=== PATIENT | female | born 1950 | race African-American/Black ===

== ENCOUNTER → 2018-12-22 | Outpatient (CLI) | payer BC ==
[~2018-12-22] MED LIST: ASPI-612 PO; CALC1TAB75 PO; CALC600T4 PO; CLON0.1T PO; CLON0.2T PO; CYAN1TAB28 PO; FERR325T3 PO; GLIM2TAB2 PO; GLIM4TAB2 PO; LOSA100T14 PO; NIFE30TA17 PO; POLY17PO29 PO; POTA20TA82 PO; SITA100T PO; SITA50TA PO
--- NOTE | 2018-12-22 11:34 | KCIC ---
RENAL COMPLETE BILATERAL History: Stage IV kidney disease Comparison: None. Findings: Multiple sonographic images of the kidneys and retroperitoneal structures are submitted. Right kidney measured 11.7 x 5.2 x 5.2 cm. Left kidney measured 12.2 x 4.7 x 3.8 cm. There is no hydronephrosis of either kidney. Renal parenchyma bilaterally is echogenic. There is a focus of hypoechogenicity with internal echoes of the mid left kidney about 2.7 x 2.2 x 2.3 cm, no associated vascularity on color Doppler imaging and slight increased through transmission. Inferior vena cava is obscured by bowel gas. Proximal abdominal aorta is obscured by bowel gas otherwise normal caliber of the visualized sacral aorta up to 1.6 cm the mid segment. Ureteral jets are seen in the urinary bladder lumen bilaterally. Impression: 1. There is slightly complex cyst of the mid left kidney. There is no hydronephrosis of either kidney. Both kidneys are echogenic, evidence of medical renal disease. Electronically signed by: Kumar Moffett MD (12/22/2018 11:31 AM) [facility]
== END | disposition home or self-care (01) ==
LOC: KCIC US 10:57
PROVIDERS: ATTEND Internal Medicine Nephrology
DX: N18.4 Chronic kidney disease, stage 4 (severe) (principal); N28.9 Disorder of kidney and ureter, unspecified
CPT/HCPCS: 76770

== ENCOUNTER 2019-01-21 08:27 | Outpatient (CLI) | payer BC ==
[2019-01-21] VITALS (21 sets, daily range): BP systolic 147–190; BP diastolic 68–86
[~2019-01-21] VITALS: Ht 170.2 cm; Wt 75.7 kg
[2019-01-21] MEDS ORDERED: GLIM2TAB2 PO (08:49)
[2019-01-21] MEDS ORDERED: POTA20TA82 PO (08:49)
[2019-01-21] MEDS ORDERED: ASPI-612 PO (08:49)
[2019-01-21] MEDS ORDERED: SITA100T PO (08:49)
[2019-01-21] MEDS ORDERED: LOSA100T14 PO (08:49)
[2019-01-21] MEDS ORDERED: CALC600T4 PO (08:49)
[2019-01-21] MEDS ORDERED: NIFE30TA17 PO (08:49)
[2019-01-21] MEDS ORDERED: CLON0.1T PO (08:49)
[2019-01-21 09:20] LABS: BASO % 1 % (0-3); EOS # 0.1 x10^3/uL (0.0-0.7); EOS % 2 % (0-3); HEMOGLOBIN 8.8 g/dL (12.0-15.5); LYMPH % 17 % (24-48); MEAN CORPUSCULAR HEMOGLOBIN 29 pg (25-35); MEAN CORPUSCULAR HGB CONC 32 g/dL (31-37); MEAN CORPUSCULAR VOLUME 90 fL (79-100); MONO # 0.6 x10^3/uL (0.0-1.1); MONO % 9 % (0-9); NEUT # 4.3 x10^3uL (1.8-7.7); NEUT % 72 % (31-73); PLATELET COUNT 219 x10^3/uL (140-400); RED BLOOD COUNT 3.01 x10^6/uL (3.50-5.40); RED CELL DISTRIBUTION WIDTH 13.4 % (11.5-14.5)
[2019-01-21 09:24] LABS: CALCIUM 9.1 mg/dL (8.5-10.1); CREATININE 3.9 mg/dL (0.6-1.0); GFR 13.8; POTASSIUM 4.3 mmol/L (3.5-5.1)
[2019-01-21 09:29] LABS: PROTHROMBIN TIME PATIENT 13.8 SEC (11.7-14.0)
[2019-01-21] MEDS ORDERED: fentaNYL PF VIAL 100 MCG/2 ML VIAL ONE (09:34)
[2019-01-21] MEDS ORDERED: MIDAZOLAM HCL/PF 2 MG/2 ML VIAL. ONE (09:34)
[2019-01-21] MEDS ORDERED: LIDOCAINE WITH 8.4% SOD BICARB 3 ML DISP.SYRIN. ONE (09:59)
[2019-01-21] MEDS ORDERED: GELATIN SPONGE SIZE 12-7MM SPONGE. ONE (09:59)
[2019-01-21] MEDS ORDERED: fentaNYL PF VIAL 100 MCG/2 ML VIAL IV ONE (10:30)
[2019-01-21] MEDS ORDERED: GELATIN SPONGE SIZE 12-7MM SPONGE. TP ONE (10:30)
[2019-01-21] MEDS ORDERED: LIDOCAINE WITH 8.4% SOD BICARB 3 ML DISP.SYRIN. IJ ONE (10:30)
[2019-01-21] MEDS ORDERED: MIDAZOLAM HCL/PF 2 MG/2 ML VIAL. IV ONE (10:30)
--- NOTE | 2019-01-21 11:24 | RAD ---
CT-guided bone marrow biopsy. 01/21/2019 11:21 AM Indication: Elevated free light chains Discussion: The risks and benefits of the procedure, including but not limited to, bleeding and infection were discussed patient. Informed consent was obtained. The patient was brought to the CT scanner and placed in the prone position. A timeout procedure was performed. [employer] CT imaging of the pelvis demonstrated left ilium amenable to bone marrow biopsy. The overlying soft tissues were prepped and draped using maximum sterile barrier technique. 1% lidocaine without epinephrine was administered for local anesthesia. Under intermittent CT guidance, an OncControl needle was advanced into the bone marrow of the left iliac crest. 2 Aspirates and 1 core biopsy samples were obtained. Samples were delivered to pathology was present at the time of procedure. The needle was removed and manual pressure held to achieve hemostasis. No immediate complications were identified. The procedure was performed under conscious sedation including continuous cardiopulmonary monitoring via dedicated sedation nurse. Sedation time: 20 minutes Impression: Successful CT-guided bone marrow biopsy of the left iliac crest . PQRS Compliance Statement: One or more of the following individualized dose reduction techniques were utilized for this examination: 1. Automated exposure control 2. Adjustment of the mA and/or kV according to patient size 3. Use of iterative reconstruction technique
--- NOTE | 2019-01-21 14:13 | NUR ---
Discharge Note: KAREN ALVAREZ Discharge instructions and discharge home medications reviewed with Patient and a copy given. All questions have been answered and understanding verbalized. The following instructions and handouts were given: moderate sedation and renal biopsy after care Discontinued lines and drains: Peripheral IV intact. Patient discharged to Home or Self Care withFamily Membervia Wheelchair
--- NOTE | 2019-02-03 17:07 | PATHOLOGY ---
[facility] Accession Number: [id number] . 01 Material submitted: . PART A: BONE MARROW BIOPSY PART B: BONE MARROW CLOT PART C: BONE MARROW ASPIRATE SLIDES PART D: PERIPHERAL BLOOD SMEAR PART E: BONE MARROW FLOW . 01 Pre-operative diagnosis: . Stage IV chronic kidney disease, type 2 diabetes, hypertension, anemia, and elevated free light chains. . 01 Clinical history: . Elevated free light chain . 02 Diagnosis: Peripheral smear: - Normocytic normochromic anemia, moderate. . Bone marrow, aspirate smears, clot sections, and core biopsy: - Normocellular marrow showing trilineage hematopoiesis, no significant dyspoiesis, adequate to mildly increased reticuloendothelial iron stores, and focal mild polyclonal plasmacytosis. . (ARNULFOM:miguel; 02/01/2019) AZJ/02/03/2019 . 02 Comment: The peripheral smear shows a moderate normocytic normochromic anemia. There is no evidence of a red cell fragmentation disorder. The bone marrow is normocellular and shows trilineage hematopoiesis, no significant dyspoiesis, and adequate to mildly increased reticuloendothelial iron stores. There are foci of mild plasmacytosis showing between 5% and 10% plasma cells. Most areas show less than 5% plasma cells. The plasma cells are polyclonal. There is no evidence of involvement by multiple myeloma. The anemia in this case is most likely a result of anemia of chronic kidney disease. Correlate clinically. (COLIN:miguel; 02/01/2019) . 02 Electronically signed: . Nir Del Valle MD, Pathologist NPI- [id number] . 01 Gross description: . A. The specimen is received in formalin, labeled "Quincy Denis BM BX". Received are two needle cores of light jarrett bone measuring 0.5 and 0.6 cm in length, with each measuring 0.3 cm in diameter. The specimen is submitted entirely in cassette A1, following light decalcification. . B. The specimen is received in formalin, labeled "Quincy Denis, BM aspirate clot". Received is a moderate amount of blood coagulum measuring 3.0 x 3.0 x 0.7 cm in aggregate dimensions. The specimen is filtered and entirely submitted in cassettes B1 and B2. (CAA; 01/21/2019) QAC/QAC . 02 Microscopic: . Laboratory Data: The WBC count is 6.0 K/CMM, and the automated WBC differential reveals 72% neutrophils, 17% lymphs, 9% monos, 2% eos, and 1% baso. The RBC count is 3.01 M/CMM, hemoglobin 8.8 G/DL, hematocrit 27.0%, MCV 90 FL, MCH 29 PG, MCHC 32 G/DL, and the RDW is 13.4%. The platelet count is 219 K/CMM. The BUN is 52 MG/DL, and creatinine is 3.9 MG/DL. Additional laboratory results are obtained from Dr. Chan's office. The total protein is 7.5 G/DL, albumin 3.8 G/DL, and the globulin is 3.7 G/DL. The serum protein electrophoresis is normal and does not show an abnormal protein band. Serum immunofixation shows no evidence of a paraprotein. The serum IgG is 1,345 MG/DL, IgA 272 MG/DL, and IgM 39 MG/DL. The serum iron is 37 UG/DL, TIBC 326 UG/DL, saturation 11%, and ferritin 86 NG/ML. The serum kappa free light chain is 15.36 MG/DL, lambda free light chain 4.47 MG/DL, and the kappa/lambda free light chain ratio is 3.44. The serum folate is 12.2 NG/ML, and vitamin B12 is 354 PG/ML. . Peripheral Smear: The WBC count is normal. The WBC differential reveals a predominance of segmented neutrophils, with smaller populations of lymphocytes and monocytes and an occasional eosinophil noted. Neutrophils do not show dysplastic changes. There is no significant neutrophilic left shift. There are no circulating blasts. There is no leukoerythroblastic reaction. The lymphocyte population consists predominantly of small lymphocytes. An occasional reactive lymphocyte is noted. Red blood cells appear normochromic and normocytic and show no significant anisopoikilocytosis. There is no evidence of red blood cell rouleaux. Platelets appear normal in number and morphology. . Aspirate Smears: Two Yanez's-stained and one iron-stained aspirate smears are examined. The smears contain multiple marrow particles. The M/E ratio varies depending upon the area examined, but overall appears within normal range. Erythroid maturation appears normoblastic. There are no megaloblastic or overt dysplastic changes. Granulopoiesis qualitatively appears normal. There is no significant left shift or dysplastic changes. There is no increase of blasts. Megakaryocytes appear adequate in number and are focally loosely clustered. The megakaryocytes are of variable ploidy. There are scattered admixed plasma cells. Plasma cells focally comprise up to approximately 5% of nucleated marrow cells. Most areas show less than 5% plasma cells. The plasma cells have a relatively mature appearance. There is no increase of lymphocytes. There are no cells foreign to the marrow. The iron stain of the aspirate smear shows adequate to focally mildly increased iron stores. No ringed sideroblasts are identified. . Bone Marrow Biopsy and Clot Section: Sections of the bone marrow biopsy reveal segments of bone marrow showing focal aspiration artifact. Preserved areas are on the order of 20%-30% cellular. The clot sections contain multiple marrow particles. Most of these particles range between 20% and 40% cellular. There is a good admixture of erythroid and granulocytic precursors, which are present in varying stages of maturation. There is no increase of blasts. Megakaryocytes appear adequate in number and are of variable ploidy. There are scattered admixed plasma cells with no solid clusters or areas of sheet-like replacement by plasma cells. There are no abnormal lymphoid aggregates, granulomas, or cells foreign to the marrow. To confirm flow cytometric findings and characterize the target cells in a tissue architectural context, immunoperoxidase stains for CD138 and in situ hybridization for kappa and lambda light chain are obtained and yield the following results: . CD138 (A1): Plasma cells positive having a scattered interstitial and focal perivascular distribution; plasma cells comprise less than 5% to focally between 5% and 10% of nucleated marrow cells. . [place] and lambda MITCHEL (A1): Plasma cells appear polyclonal. . CD138 (B1 and B2): Plasma cells positive having a scattered interstitial and focal perivascular distribution. Plasma cells comprise less than 5% to focally between 5% and 10% of nucleated marrow cells. . [place] and lambda MITCHEL (B1 and B2): Plasma cells appear polyclonal. . The reticulin stain of the bone marrow biopsy shows no significant reticulin fibrosis. Iron stains of the clot sections show adequate to focally mildly increased reticuloendothelial iron stores. No ringed sideroblasts are identified. . Special Studies: Bone marrow submitted for flow cytometric analysis has a viability of 99.5%. Granulocytes comprise 83.1% of total cells and show phenotypic evidence of maturation. Monocytes comprise 3.3% of total cells and show increased CD56 expression. CD45 dim, CD34 positive cells comprise 0.9% of total cells. Plasma cells comprise 0.1% of total cells and show unremarkable surface marker expression and have a normal cytoplasmic kappa/lambda ratio of 1.6. Lymphocytes comprise 7.0% of total cells. T-cells comprise 82% of lymphoid cells and show a CD4/CD8 ratio of 1.0. NK-cells comprise 7% of lymphoid cells. Mature B-cells comprise 6% of lymphoid cells and are polyclonal with a kappa:lambda ratio of 1.5. . Bone marrow submitted for cytogenetic analysis shows a normal female karyotype in all cells analyzed. . (JPM:lizzie/miguel; 02/01/2019) . 02 Pathologist provided ICD-10: D64.9, D72.822 . 02 CPT . 203444, 317656, 669016, 235013, 406991, 760979, 814936, B38620, [id number], F80122 Specimen Comment: A courtesy copy of this report has been sent to Specimen Comment: [phone], , . Specimen Comment: Report sent to ,DR CHAN / DR RAMEY Specimen Comment: A duplicate report has been generated due to demographic updates. Performed at: 01 [facility] [address], [place] [id number] MD Jonnie Lerma MD Phone: [phone] Performed at: 02 [facility] [address] [place], [place] [id number] MD Nir Del Valle MD Phone: [phone]
[2019-04-12] MEDS ORDERED: CLON0.2T PO (09:36)
[2019-04-12] MEDS ORDERED: CALC1TAB75 PO (12:24)
[2019-04-12] MEDS ORDERED: GLIM4TAB2 PO (12:25)
[2019-04-12] MEDS ORDERED: SITA50TA PO (12:25)
[2019-04-12] MEDS ORDERED: FERR325T3 PO (12:27)
[2019-04-12] MEDS ORDERED: POLY17PO29 PO (12:28)
[2019-04-12] MEDS ORDERED: CYAN1TAB28 PO (12:28)
== END 2019-01-21 14:10 | disposition home or self-care (01) ==
LOC: INTRAD 08:27
PROVIDERS: ATTEND Internal Medicine Hematology & Oncology
DX: R76.8 Other specified abnormal immunological findings in serum (principal); I10 Essential (primary) hypertension; E11.9 Type 2 diabetes mellitus without complications; Z79.899 Other long term (current) drug therapy; Z79.01 Long term (current) use of anticoagulants; Z79.84 Long term (current) use of oral hypoglycemic drugs
CPT/HCPCS: 36415; 38222; 77012; 80048; 85025; 85610; 85730; 88184; 88185; 88237; 99152; J2250; J3010; 88305; 88311; 88313; 88342; 88364; 88365; 99153

== ENCOUNTER 2019-01-21 08:53 | Outpatient (CLI) | payer BC ==
[~2019-01-21 08:53] MED LIST changes: -CALC1TAB75 PO; -CLON0.2T PO; -CYAN1TAB28 PO; -FERR325T3 PO; -GLIM4TAB2 PO; -POLY17PO29 PO; -SITA50TA PO
--- NOTE | 2019-01-21 10:58 | PDOC ---
MODERATE SEDATION ASSESSMENT RISKS/ALTERNATIVES Risks/Alternatives Risks and alternatives of this type of sedation and procedure discussed with: RISK/ALTERNATIVES: Patient H & P ON CHART H & P H & P on chart and reviewed for co-morbid conditions and appropriate labs. H&P ON CHART: Yes STATUS PREG STATUS ASSESSED: Yes MEDS/ALLERGIES REVIEWED Meds/Allergies Reviewed Medications and Allergies including time and route of recently administered narcotics and sedatives. MEDS/ALLERGIES REVIEWED: Yes ASA RATING ASA RATING: III AIRWAY ASSESSMENT Airway Assessment Airway patency, oral function limitations, presence of caps, crowns, dentures, partials, and ability to extend neck assessed. AIRWAY ASSESSMENT: Yes MALLAMPATI SCORE MALLAMPATI SCORE: III PRE-SEDATION ASSESSMENT PRE-SEDATION ASSESSMENT: Yes FATMATA CARDOSO MD Jan 21, 2019 10:58
--- NOTE | 2019-01-21 10:58 | PDOC1 ---
History and Physical Date of Procedure Date of Admission Outpatient Procedure Procedure Bone marrow and renal biopsy Indication Indication Chronic renal disease. History of Present Illness Reason for Visit Longstanding chronic renal disease. Past Medical History Cardiovascular: HTN Renal/: Chronic renal insuff Current Medications Current Medications Active Scripts Active Reported Calcium (Calcium Carbonate) 600 Mg Tablet 600 Mg PO DAILY Clonidine Hcl 0.1 Mg Tablet 1 Tab PO PRN BID PRN Januvia (Sitagliptin Phosphate) 100 Mg Tablet 1 Tab PO DAILY Potassium Chloride 20 Meq Tablet.er 20 Meq PO DAILY Nifedipine Er (Nifedipine) 30 Mg Tab.er.24 90 Mg PO DAILY Losartan Potassium 100 Mg Tablet 100 Mg PO DAILY Glimepiride 2 Mg Tablet 1 Tab PO DAILY Aspirin Ec (Aspirin) 81 Mg Tablet.dr 1 Tab PO DAILY Allergies Allergies: Coded Allergies: No Known Drug Allergies (Unverified , 01/21/19) Physical Exam Lungs: Clear to auscultation Heart: Regular rate Psych/Mental Status: Mental status NL Assessment Assessment Chronic renal disease Plan Plan Renal biopsy FATMATA CARDOSO MD Jan 21, 2019 10:58
--- NOTE | 2019-01-24 09:28 | RAD ---
CT-guided right kidney biopsy January 21, 2019 Indication: Recurrent chronic renal disease Discussion: The risks and benefits of the procedure were discussed the patient. Sedation: Conscious sedation was administered for 30 minutes. The patient was monitored by a qualified independent observer throughout the time of sedation. Please refer to the medical record for exact doses of medications utilized to achieve moderate sedation. Sterility: The procedure was performed in its entirety using appropriate elements of sterile technique. Consent: The procedure was explained in its entirety to the patient or the patients designated union representative by a member of the treatment team, including a discussion of the risks, benefits and commonly accepted alternatives to the procedure, as well as the expected consequences of no therapy whatsoever. Discussion of the risks included, but was not limited to, those that are most frequent and those that are rare but possibly severe or life-threatening, as well as the possibility of unforeseen complications. Technique and Findings: Following informed consent, the patient was prepped and draped in the usual sterile fashion. 1% Lidocaine was used to achieve local anesthesia over the posterior right flank. CT imaging demonstrates left renal atrophy and unremarkable left kidney. Left kidney was targeted for biopsy. 17-gauge needle was advanced into the inferior lateral renal cortex. 2 core biopsy samples were obtained. Gelfoam embolization of the biopsy tract was performed as the guiding needle was removed. Sterile dressings were applied. Complications: No immediate Impression: CT-guided right renal biopsy PQRS Compliance Statement: One or more of the following individualized dose reduction techniques were utilized for this examination: 1. Automated exposure control 2. Adjustment of the mA and/or kV according to patient size 3. Use of iterative reconstruction technique
--- NOTE | 2019-01-25 16:06 | PATHOLOGY ---
[facility] Accession Number: [id number] . 01 Material submitted: . RIGHT RENAL BIOPSY . 01 Clinical history: . CKD stage IV . 02 Diagnosis: Special studies report received from [facility], [address] [place] [address], [facility] [address] [address], on case [id number], labeled with their number [id number], dated 01/24/2019. . Specimen submitted: By Isi Mcdonald MD For Kidney, biopsy . DIAGNOSIS: Global () and Segmental Glomerulosclerosis. See Comment. . Interstitial Fibrosis and Tubular Atrophy, Severe. . Arterio- and Arteriolosclerosis with Hyalinosis, Moderate to Severe. . Comment: The renal biopsy findings are chronic and advanced and appear related to the patient's history of hypertension. There is no evidence of immune complex-mediated or paraprotein-related renal disease. . Clinical History: The patient is a 68-year-old female with a history of hypertension, diabetes mellitus, and anemia who presents with CKD stage IV. Laboratory studies show an elevated BUN (52 mg/dL) and creatinine (3.9 mg/dL), low hemoglobin (8.8 g/dL), and low GFR (14 mL/min). Hemoglobin A1c is within normal range (5.7%). A renal ultrasound shows bilateral echogenicity and a complex cyst within the left mid kidney. A renal biopsy was performed to identify the etiology of the patient's progressive chronic kidney disease. . Gross Description: Received from [facility] via [facility] are two specimen bottles, one bottle contains formalin and the other contains Gadiel's fixative. The bottles are labeled with the patient's name, (Quincy Denis). . Received in formalin is one piece of jarrett tissue measuring 1.8 x 0.1 x 0.1 cm (has a fatty end). Two pieces are submitted for electron microscopy and the remainder of the tissue is submitted in its entirety for light microscopy. . Received in Gadiel's fixative is one piece of jarrett tissue measuring 1.2 x 0.1 x 0.1 cm (two fatty ends). The specimen is submitted in its entirety for immunofluorescence microscopy. . Microscopic Description: LIGHT MICROSCOPY: . The renal tissue submitted for light microscopy consists entirely of cortex and contains 18 glomeruli, of which 15 are globally sclerotic. Two glomeruli show segmental sclerosis with adhesion of glomerular tuft to Salcedo's capsule. Within one segmentally sclerotic glomerulus, this is associated with hyaline deposits and in the other there is associated epithelial cell capping. Focal glomeruli show Periglomerular fibrosis. There is no mesangial matrix expansion, mesangial hypercellularity, endocapillary hypercellularity, fibrinoid necrosis, karyorrhexis, or crescent formation within glomeruli. Then glomerular capillary loops are corrugated but do not show spikes, holes, or double contouring. These is severe interstitial fibrosis and tubular atrophy involving 70% of cortex. There is a lymphoplasmacytic interstitial inflammatory infiltrate within fibrotic areas and surrounding venules. A rare non-polarizable calcium phosphate deposit is identified within the interstitium. The tubular epithelium shows simplification, dilation, and ectasia. There are areas of endocrine-type tubular atrophy. Numerous hyaline casts are present. There are no red blood cell or atypical casts. Arteries show moderate intimal fibrosis. There is moderate to severe arteriolar hyalinosis. A [place] red stain is negative for amyloid. No arteritis is identified. Tol[place] blue-stained sections show four glomeruli of which three are globally sclerotic. . Standard of care requirements for proper analysis of renal biopsies mandates serial sections, and PAS, Adams silver, trichrome and SMMT stains at multiple levels. PAS stains are used to evaluate various aspects of the glomerular, tubular, and vascular basement membranes. Adams silver stains are used to evaluate thickening, reduplication, "spiking" or "bubbling" of the glomerular basement membrane. Toluidine blue stained sections highlight glomerular basement membranes and demonstrates unusual types of deposits. It also reveals details of tubular epithelial cells and aids in the analysis of vascular lesions. Loly trichrome stains are used to evaluate interstitial fibrosis and basement membrane deposits. The SMMT stain helps evaluate basement membrane changes, immune deposits and tubulointerstitial scarring. Controls are routinely run on all special stains and are verified for acceptability. A review of the technical quality of routine slides is made before results are reported. . . IMMUNOFLUORESCENCE: One core of renal tissue is present for evaluation consisting entirely of cortex containing eight glomeruli, of which five are globally sclerotic. The sections are stained for IgG, IgM, IgA, C3, C1q, albumin, fibrinogen, and kappa and lambda light chains. Within glomeruli, there is no significant staining for any of the immune reactants. There is no significant extraglomerular staining. [place] and lambda light chain are equal throughout the tubulointerstitium. . Positive and negative controls are run on all immunofluorescent stains and are verified for acceptability before results are reported. Internal antigens serve as positive controls. . ELECTRON MICROSCOPY: Two blocks are prepared. Ultrastructural evaluation of a glomerulus reveals basement membranes that are segmentally thickened. There are no electron-dense deposits are apparent. Tubular basement membranes show mild thickening. Peritubular capillaries display no significant basement membrane lamellation. . Special procedures including immunofluorescence and electron microscopy correlate with the light microscopy findings. . Note: Some of the tests reported here may have been developed and performance characteristics determined by [facility]. They have not been cleared or approved by the U.S. Food and Drug Administration (FDA). The FDA does not require this test to go through premarket FDA review. This test is used for clinical purposes. It should not be regarded as investigational or for research. [facility] is certified under the Clinical Laboratory Improvement Amendments of 1988 (CLIA) as qualified to perform high complexity clinical laboratory testing. . Physician/Physician's office called on 01/24/2019 at 3:08 PM Central. . *I have reviewed the clinical history, the pertinent gross findings, all microscopic materials, discussed the case with the clinician when appropriate, and have rendered the final diagnosis. . . Final Diagnosis performed by Eligio Escobar M.D. Electronically signed 01/24/2019 5:21:04 PM . . A complete copy of the report is on file. . Professional and technical services performed by [facility] at [address], [address], [place], [address]. . (AMJ 01/25/2019) . AZJ/01/25/2019 . 02 Electronically signed: . Nir Del Valle MD, Pathologist NPI- [id number] . 01 Gross description: . The specimen is received in formalin, labeled "Quincy Denis, renal biopsy right". Received is a single needle core of pale jarrett soft tissue measuring 1.7 cm in length, with each measuring 0.1 cm in diameter. The specimen is forwarded to an outside laboratory for further processing. . Also received is a container of Gadiel's fixative, labeled "Quincy Denis, renal biopsy right". Received is a single needle core of pale jarrett soft tissue measuring 1.0 cm in length, with each measuring 0.1 cm in diameter. The specimen is forwarded to an outside laboratory for further processing. (CAA; 01/21/2019) QAC/QAC . 02 Pathologist provided ICD-10: N18.4 . 02 CPT . 432401 Specimen Comment: A courtesy copy of this report has been sent to Specimen Comment: [phone], , . Specimen Comment: Report sent to ,DR MCDONALD / DR RAMEY Specimen Comment: A duplicate report has been generated due to demographic updates. Performed at: 01 [facility] [address], [place], [place] [id number] MD Jonnie Lerma MD Phone: [phone] Performed at: 02 [facility] [address] [place], [place] [id number] MD Nir Del Valle MD Phone: [phone]
[2019-04-12] MEDS ORDERED: CLON0.2T PO (09:36)
[2019-04-12] MEDS ORDERED: CALC1TAB75 PO (12:24)
[2019-04-12] MEDS ORDERED: GLIM4TAB2 PO (12:25)
[2019-04-12] MEDS ORDERED: SITA50TA PO (12:25)
[2019-04-12] MEDS ORDERED: FERR325T3 PO (12:27)
[2019-04-12] MEDS ORDERED: CYAN1TAB28 PO (12:28)
[2019-04-12] MEDS ORDERED: POLY17PO29 PO (12:28)
== END 2019-01-21 14:10 | disposition home or self-care (01) ==
LOC: INTRAD 08:53
PROVIDERS: ATTEND Internal Medicine Nephrology
DX: I12.9 Hypertensive chronic kidney disease with stage 1 through stage 4 chronic kidney disease, or unspecified chronic kidney disease (principal); N18.4 Chronic kidney disease, stage 4 (severe); Z79.899 Other long term (current) drug therapy
CPT/HCPCS: 50200; 77012; 99152; 99153

== ENCOUNTER → 2019-04-13 | Day surgery (SDC) | payer BC ==
[~2019-04-13] VITALS: Ht 167 cm; Wt 72.7 kg
[~2019-04-13] MED LIST changes: +CALC1TAB75 PO; +CLON0.2T PO; +CYAN1TAB28 PO; +DEXAMETHASONE SOD PHOS 4 MG/ML VIAL ONE; +FERR325T3 PO; +GLIM4TAB2 PO; +GLYCOPYRROLATE 1 MG/5 ML VIAL. ONE; +HEPARIN 1,000 UNIT in IV NORMAL SALINE 1,000 ML for SURG PERIOP IRR ONE; +HEPARIN SODIUM 1,000 UNIT in IV NORMAL SALINE 100ML 100 ML IRR ONE; +HYDR-3164 PO; +HYDROcodone/APAP 5/325MG 1 TAB TABLET PO ONE; +HYDROmorphone 2 MG/ML VIAL IV PRN; +INSULIN LISPRO 100 UNIT/ML 3ML VIAL for OP,RR ONLY. SQ PRN; +IV NORMAL SALINE 1000ML BAG 1,000 ML IV SCH; +IV RINGERS,LACTATED 1000ML 1,000 ML IV SCH; +LIDOCAINE 2% PF 5 ML VIAL. ONE; +MORPHINE SULFATE 2 MG/ML VIAL. IV PRN; +NEOSTIGMINE METHYLSULFATE 5 MG/5 ML SYRINGE. ONE; +ONDANSETRON PF 4 MG/2 ML VIAL. IV PRN; +ONDANSETRON PF 4 MG/2 ML VIAL. ONE; +POLY17PO29 PO; +PROCHLORPERAZINE 10 MG/2 ML VIAL. IV PRN; +PROPOFOL 20 ML IV ONE; +ROCURONIUM 50 MG/5 ML VIAL. ONE; +SEVOFLURANE 61 TO 120 MINUTES. IH ONE; +SITA50TA PO; +ceFAZolin 2GM PREMIX 2 GM/50 ML BAG IV ONE; +ePHEDrine PF IN SALINE 50 MG/10 ML SYRINGE. IV ONE; +fentaNYL PF VIAL 100 MCG/2 ML VIAL IV PRN; +fentaNYL PF VIAL 100 MCG/2 ML VIAL ONE; +hydrALAZINE 20 MG/ML VIAL. IVP ONE; +hydrALAZINE 20 MG/ML VIAL. ONE
--- NOTE | 2019-04-13 14:08 | PDOC4 ---
Operative Note Operative Note OPERATIVE NOTE: PREOPERATIVE DIAGNOSIS: Renal failure. POSTOPERATIVE DIAGNOSIS: Renal failure. PROCEDURE: Laparoscopic peritoneal dialysis catheter placement. SURGEON: Cash Cat MD ANESTHESIA: General. ESTIMATED BLOOD LOSS: 20 mL. SPECIMENS: None. DRAINS: None. COMPLICATIONS: None. INDICATIONS: The patient is a 68-year-old female who was referred for placement of a peritoneal dialysis catheter due to progressive renal failure. The details and risks of surgery were discussed with the patient. The risks of surgery include bleeding, infection, visceral injury, pain, anesthetic risk, potential need for additional surgery or procedure. In addition, the patient is aware of the potential for catheter malfunction or dysfunction and possibility of needing revision, replacement, or removal of the catheter. They understand all this and would like to proceed. DESCRIPTION OF PROCEDURE: The patient was brought to the operating room and placed supine on the operating table. General anesthesia was performed. The abdomen was prepped with ChloraPrep and draped in a standard surgical manner. A small incision was made in the patient's right upper quadrant through which a visualized 5-mm trocar was inserted. A pneumoperitoneum was then created and the laparoscope was introduced. Initial inspection showed significant adhesions involving the mid and lower abdomen due to prior surgery. The adhesions involved both small intestine and omentum. Two additional 5 mm trochars were placed in the patient's left abdomen for some limited lysis of adhesions. Some of the omentum was freed away from the abdominal wall with sharp dissection to help create sufficient space for the catheter. We did not feel it prudent to mobilize the small bowel out of concern for potential enterotomy or the development of future worse adhesions. There appeared to be enough space in the left lower abdomen for placement of the catheter however some small bowel adh esions remained in the lower midabdomen and right lower quadrant. An 8-mm trocar was inserted in the left abdomen. The coiled portion of the lower catheter was then inserted into the left lower quadrant under direct visualization. The cuff was positioned in the rectus musculature. The coiled portion rested well in the left lower quadrant. The pneumoperitoneum was then relieved. An incision was then made in the left upper quadrant near the pre planned exit site. The proximal portion of the catheter was tunnelled subcutaneously to the exit site. The proximal cuff remained in the subcutaneous tissue a few cm away from the exit site. The catheter was then assembled to IV tubing and tested by infusing a liter of saline. The saline passed easily into the abdomen and the bag was placed on the floor. Much of the saline was retrieved with prompt flow. The abdominal cavity was then reinsufflated and the laparoscope was reintroduced showing no change in the catheter position and the cuff remained in the rectus. The pneumoperitoneum was relieved and the ports were removed. The catheter was then assembled to the connector tubing as per the dialysis instructions. All the incision sites were closed with 4-0 Monocryl. Steri-Strips and sterile dressing were then applied. The patient tolerated procedure well and was sent to the recovery room in stable condition. At the end of the case all counts were correct. CASH CAT MD Apr 13, 2019 14:08
--- NOTE | 2019-04-13 14:10 | DISCH ---
DISCHARGE INSTRUCTIONS Condition on Discharge Condition on Discharge: Stable Activity After Discharge Activity Instructions for Disc: Other, see below (No lifting over 20 lbs X 2 weeks) Diet after Discharge Diet after Discharge: Regular Wound Incision Care Wound/Incision Care: Other, see below (Keep catheter clean and dry) Follow-Up Follow up with: Dialysis center, call for appt JOSE CAT MD Apr 13, 2019 14:10
[2019-04-13 15:10] VITALS: BP 180/74
== END ==
LOC: SURG 09:36
PROVIDERS: ATTEND Surgery
DX: E11.22 Type 2 diabetes mellitus with diabetic chronic kidney disease (principal); I12.0 Hypertensive chronic kidney disease with stage 5 chronic kidney disease or end stage renal disease; N18.6 End stage renal disease; Z79.84 Long term (current) use of oral hypoglycemic drugs; Z90.710 Acquired absence of both cervix and uterus; Z98.890 Other specified postprocedural states
CPT/HCPCS: 49324; A7015; C1752; J0171; J0360; J0696; J1100; J1644; J2001; J2405; J2704; J2710; J3010; J3490; J7030

== ENCOUNTER → 2019-05-04 | Outpatient (CLI) | payer BC ==
[~2019-05-04] VITALS: Ht 170.2 cm; Wt 69.9 kg
[~2019-05-04] MED LIST changes: +CONTRAST GIVEN. MC PRN; -DEXAMETHASONE SOD PHOS 4 MG/ML VIAL ONE; -GLYCOPYRROLATE 1 MG/5 ML VIAL. ONE; -HEPARIN 1,000 UNIT in IV NORMAL SALINE 1,000 ML for SURG PERIOP IRR ONE; -HEPARIN SODIUM 1,000 UNIT in IV NORMAL SALINE 100ML 100 ML IRR ONE; -HYDROcodone/APAP 5/325MG 1 TAB TABLET PO ONE; -HYDROmorphone 2 MG/ML VIAL IV PRN; -INSULIN LISPRO 100 UNIT/ML 3ML VIAL for OP,RR ONLY. SQ PRN; +IOHEXOL 240 MG/ML 50ML VIAL. IJ ONE; +IOHEXOL 240 MG/ML 50ML VIAL. ONE; -IV NORMAL SALINE 1000ML BAG 1,000 ML IV SCH; -IV RINGERS,LACTATED 1000ML 1,000 ML IV SCH; -LIDOCAINE 2% PF 5 ML VIAL. ONE; -MORPHINE SULFATE 2 MG/ML VIAL. IV PRN; -NEOSTIGMINE METHYLSULFATE 5 MG/5 ML SYRINGE. ONE; -ONDANSETRON PF 4 MG/2 ML VIAL. IV PRN; -ONDANSETRON PF 4 MG/2 ML VIAL. ONE; -PROCHLORPERAZINE 10 MG/2 ML VIAL. IV PRN; -PROPOFOL 20 ML IV ONE; -ROCURONIUM 50 MG/5 ML VIAL. ONE; -SEVOFLURANE 61 TO 120 MINUTES. IH ONE; -ceFAZolin 2GM PREMIX 2 GM/50 ML BAG IV ONE; -ePHEDrine PF IN SALINE 50 MG/10 ML SYRINGE. IV ONE; -fentaNYL PF VIAL 100 MCG/2 ML VIAL IV PRN; -fentaNYL PF VIAL 100 MCG/2 ML VIAL ONE; -hydrALAZINE 20 MG/ML VIAL. IVP ONE; -hydrALAZINE 20 MG/ML VIAL. ONE
[2019-05-04 12:28] VITALS: BP 160/75
--- NOTE | 2019-05-04 16:10 | RAD ---
Fluoroscopic evaluation, peritoneal dialysis catheter 05/04/2019 Indication: Catheter will not aspirate Comparison study: None Discussion: The risks and benefits of the procedure discussed the patient. Informed consent was obtained. Timeout procedure was performed. Fluoroscopic evaluation of the peritoneal dialysis catheter was performed. The catheter is somewhat atypical position with the catheter tip coiled in the left pelvis. The midportion of the catheter is coiled immediately upon entering the peritoneum. Mild kinking appears to be present. The catheter will not aspirate both freely flushed. Contrast was administered which flows away from the catheter, into the left paracolic gutter. Attempts to reposition straighten the catheter, and reduce it drinking with the advancement of a stiff guidewire were unsuccessful. Catheter was flushed, but again refused to aspirate. Total fluoroscopy time:: 2.7 Minutes Dose area product: 11 Gycm2 Impression: Catheter position the left lower quadrant with coiling and mild kinking of the catheter as it enters the peritoneum. Catheter was abnormally aspirate, but flushes relatively normally.
== END ==
LOC: INTRAD 09:23
PROVIDERS: ATTEND Internal Medicine Nephrology
DX: T85.898A Other specified complication of other internal prosthetic devices, implants and grafts, initial encounter (principal); N18.9 Chronic kidney disease, unspecified; Z94.0 Kidney transplant status; Y83.8 Other surgical procedures as the cause of abnormal reaction of the patient, or of later complication, without mention of misadventure at the time of the procedure; Y92.89 Other specified places as the place of occurrence of the external cause
CPT/HCPCS: 49400; 74190; C1769; Q9966

== ENCOUNTER → 2019-05-23 | Day surgery (SDC) | payer BC ==
[~2019-05-23] MED LIST changes: -CONTRAST GIVEN. MC PRN; +DESFLURANE > 120 MINUTES IH ONE; +DEXAMETHASONE SOD PHOS 4 MG/ML VIAL ONE; +FAMOTIDINE 20 MG/2 ML VIAL ONE; +GLYCOPYRROLATE 1 MG/5 ML VIAL. ONE; +HEPARIN SODIUM 1,000 UNIT in IV NORMAL SALINE 100ML 100 ML IRR ONE; +HYDROcodone/APAP 5/325MG 1 TAB TABLET PO ONE; +HYDROmorphone 2 MG/ML VIAL IV PRN; +INSULIN LISPRO 100 UNIT/ML 3ML VIAL for OP,RR ONLY. SQ PRN; -IOHEXOL 240 MG/ML 50ML VIAL. IJ ONE; -IOHEXOL 240 MG/ML 50ML VIAL. ONE; +IV NORMAL SALINE 1000ML BAG 1,000 ML IV SCH; +IV RINGERS,LACTATED 1000ML 1,000 ML IV SCH; +LIDOCAINE 1% PF 2 ML VIAL. ID PRN; +LIDOCAINE 2% PF 5 ML VIAL. ONE; +MIDAZOLAM HCL/PF 2 MG/2 ML VIAL. ONE; +MORPHINE SULFATE 2 MG/ML VIAL. IV PRN; +NEOSTIGMINE METHYLSULFATE 5 MG/5 ML SYRINGE. ONE; +ONDANSETRON PF 4 MG/2 ML VIAL. IV PRN; +ONDANSETRON PF 4 MG/2 ML VIAL. ONE; +PROCHLORPERAZINE 10 MG/2 ML VIAL. IV PRN; +PROPOFOL 20 ML IV ONE; +ROCURONIUM 50 MG/5 ML VIAL. ONE; +ePHEDrine PF IN SALINE 50 MG/10 ML SYRINGE. IV ONE; +fentaNYL PF VIAL 100 MCG/2 ML VIAL IV PRN; +fentaNYL PF VIAL 100 MCG/2 ML VIAL ONE
[2019-05-23 08:45] LABS: CALCIUM 9.5 mg/dL (8.5-10.1); CREATININE 5.9 mg/dL (0.6-1.0); GFR 8.5
--- NOTE | 2019-05-23 09:21 | PDOC1 ---
History and Physical Date of Admission Date of Admission DATE: 05/23/19 TIME: 09:18 History of Present Illness History of Present Illness The patient is a 69 year old female with renal failure who had a PD catheter placed April 13. At that time abundant dense adhesions were noted in the midline involving small intestine, and the catheter was placed in the LLQ. We were contacted that the dialysis flow is poor and a request was made for revision. Past Medical History Cardiovascular: HTN Renal/: Chronic renal insuff Past Surgical History Past Surgical History hysterectomy, C section X 2, PD catheter placement Social History Smoke: No Current Medications Current Medications Current Medications Ondansetron HCl (Zofran) 4 mg PRN Q6HRS PRN IV NAUSEA/VOMITING; Start 05/23/19 at 07:00; Stop 05/24/19 at 06:59 Fentanyl Citrate (Fentanyl 2ml Vial) 25 mcg PRN Q5MIN PRN IV MILD PAIN 1-3; Start 05/23/19 at 07:00; Stop 05/24/19 at 06:59 Fentanyl Citrate (Fentanyl 2ml Vial) 50 mcg PRN Q5MIN PRN IV MODERATE TO SEVERE PAIN; Start 05/23/19 at 07:00; Stop 05/24/19 at 06:59 Morphine Sulfate (Morphine Sulfate) 1 mg PRN Q10MIN PRN IV SEVERE PAIN 7-10; Start 05/23/19 at 07:00; Stop 05/24/19 at 06:59 Lidocaine HCl (Xylocaine-Mpf 1% 2ml Vial) 2 ml PRN 1X PRN ID PRIOR TO IV START; Start 05/23/19 at 07:00; Stop 05/24/19 at 06:59 Hydromorphone HCl (Dilaudid) 0.5 mg PRN Q10MIN PRN IV SEV PAIN, Second choice; Start 05/23/19 at 07:00; Stop 05/24/19 at 06:59 Prochlorperazine Edisylate (Compazine) 5 mg PACU PRN PRN IV NAUSEA, MRX1; Start 05/23/19 at 07:00; Stop 05/24/19 at 06:59 Sodium Chloride 1,000 ml @ 0 mls/hr Q0M IV ; Start 05/23/19 at 15:15; Status C ancel Heparin Sodium (Porcine) 1000 unit/Sodium Chloride 101 ml @ 100 mls/hr 1X ONCE IRR ; Start 05/23/19 at 06:00; Stop 05/23/19 at 07:00; Status DC Cefazolin Sodium 50 ml @ 100 mls/hr PREOP PRN PRN IV PREOP; Start 05/23/19 at 06:45; Stop 05/24/19 at 06:44 Propofol 20 ml @ As Directed STK-MED ONCE IV ; Start 05/23/19 at 07:33; Stop 05/23/19 at 07:34; Status DC Dexamethasone Sodium Phosphate (Decadron) 4 mg STK-MED ONCE .ROUTE ; Start 05/23/19 at 07:33; Stop 05/23/19 at 07:34; Status DC Famotidine (Pepcid Vial) 20 mg STK-MED ONCE .ROUTE ; Start 05/23/19 at 07:33; Stop 05/23/19 at 07:34; Status DC Lidocaine HCl (Lidocaine Pf 2% Vial) 5 ml STK-MED ONCE .ROUTE ; Start 05/23/19 at 07:33; Stop 05/23/19 at 07:34; Status DC Ondansetron HCl (Zofran) 4 mg STK-MED ONCE .ROUTE ; Start 05/23/19 at 07:33; Stop 05/23/19 at 07:34; Status DC Fentanyl Citrate (Fentanyl 2ml Vial) 100 mcg STK-MED ONCE .ROUTE ; Start 05/23/19 at 08:01; Stop 05/23/19 at 08:02; Status DC Midazolam HCl (Versed) 2 mg STK-MED ONCE .ROUTE ; Start 05/23/19 at 08:01; Stop 05/23/19 at 08:02; Status DC Rocuronium [place] (Zemuron) 50 mg STK-MED ONCE .ROUTE ; Start 05/23/19 at 08:01; Stop 05/23/19 at 08:02; Status DC Insulin Human Lispro (HumaLOG VIAL for OP,RR ONLY) 0-10 units PRN Q1HR PRN SQ PER PROTOCOL Last administered on 05/23/19at 09:04; Start 05/23/19 at 08:15; Stop 05/24/19 at 08:14 Ringer's Solution 1,000 ml @ 75 mls/hr [id number] IV ; Start 05/23/19 at 08:45 Ringer's Solution 1,000 ml @ 75 mls/hr [id number] IV Last administered on 9at 08:42; Start 05/23/19 at 08:45 Active Scripts Active Reported [place] 5-325 Tablet (Acetaminophen/Hydrocodone Bitart) 1 Each Tablet 1-2 Tab PO Q4-6HRS Miralax (Polyethylene Glycol 3350) 17 Gm Powd.pack 1 Packet PO PRN Vitamin F63-Cwufj Acid Tablet (Cyanocobalamin/Folic Acid) 1 Each Tablet 1 Each PO DAILY Ferrous Sulfate 325 Mg Tablet.dr 325 Mg PO DAILY Glimepiride 4 Mg Tablet 1 Tab PO DAILY Januvia (Sitagliptin Phosphate) 50 Mg Tablet 25 Mg PO DAILY Calcium 600 + Vit D 200 Tablet (Calcium Carbonate/Vitamin D3) 1 Each Tablet 1 Each PO DAILY Clonidine Hcl 0.2 Mg Tablet 1 Tab PO BID Potassium Chloride 20 Meq Tablet.er 20 Meq PO DAILY Nifedipine Er (Nifedipine) 30 Mg Tab.er.24 90 Mg PO DAILY Losartan Potassium 100 Mg Tablet 100 Mg PO DAILY Allergies Allergies: Coded Allergies: No Known Drug Allergies (Unverified , 05/23/19) ROS General: No: Chills, Night Sweats, Fatigue, Malaise, Appetite, Other PSYCHOLOGICAL ROS: No: Anxiety, Behavioral Disorder, Concentration difficultie, Decreased libido, Depression, Disorientation, Hallucinations, Hostility, Irritablity, Memory difficulties, Mood Swings, Obsessive thoughts, Physical abuse, Sexual abuse, Sleep disturbances, Suicidal ideation, Other Eyes: No Blurry vision, No Decreased vision, No Double vision, No Dry eyes, No Excessive tearing, No Eye Pain, No Itchy Eyes, No Loss of vision, No Photophobia, No Scotomata, No Uses contacts, No Uses glasses, No Other Hematological and Lymphatic: No: Bleeding Problems, Blood Clots, Blood Transfusions, Brusing, Night Sweats, Pallor, Swollen Lymph Nodes, Other Respiratory: No: Cough, Hemoptysis, Orthopnea, Pleuritic Pain, Shortness of breath, SOB with excertion, Sputum Changes, Stridor, Tachypnea, Wheezing, Other Cardiovascular: No Chest Pain, No Palpitations, No Orthopnea, No Paroxysmal Noc. Dyspnea, No Edema, No Lt Headedness, No Other Gastrointestinal: No Nausea, No Vomiting, No Abdominal Pain, No Diarrhea, No Constipation, No Melena, No Hematochezia, No Other Genitourinary: No Dysuria, No Frequency, No Incontinence, No Hematuria, No Retention, No Discharge, No Urgency, No Pain, No Flank Pain, No Other, No , No , No , No , No , No , No Neurological: No Behavorial Changes, No Bowel/Bladder ControlChng, No Confusion, No Dizziness, No Gait Disturbance, No Headaches, No Impaired Coord/balance, No Memory Loss, No Numbness/Tingling, No Seizures, No Speech Problems, No Tremors, No Visual Changes, No Weakness, No Other Physical Exam General: Alert, Oriented X3, Cooperative, No acute distress HEENT: Atraumatic Lungs: Clear to auscultation Abdomen: Soft (PD catheter in left abdomen, lower abdominal scars) Extremities: No clubbing, No cyanosis Skin: No rashes, No breakdown Neuro: Normal gait, Normal speech Psych/Mental Status: Mental status NL Vitals Vitals Vital Signs Date Time Temp Pulse Resp B/P (MAP) Pulse Ox O2 Delivery O2 Flow Rate FiO2 05/23/19 08:37 97.3 50 20 141/67 99 Room Air 97.3 Labs Labs Laboratory Tests Test 05/23/19 08:31 Sodium Level 138 mmol/L (136-145) Potassium Level 4.0 mmol/L (3.5-5.1) Chloride Level 100 mmol/L (98-107) Carbon Dioxide Level 26 mmol/L (21-32) Anion Gap 12 (6-14) Blood Urea Nitrogen 58 mg/dL (7-20) Creatinine 5.9 mg/dL (0.6-1.0) Estimated GFR (Cockcroft-Gault) 8.5 Glucose Level 210 mg/dL (70-99) Calcium Level 9.5 mg/dL (8.5-10.1) Laboratory Tests Test 05/23/19 08:31 Sodium Level 138 mmol/L (136-145) Potassium Level 4.0 mmol/L (3.5-5.1) Chloride Level 100 mmol/L (98-107) Carbon Dioxide Level 26 mmol/L (21-32) Anion Gap 12 (6-14) Blood Urea Nitrogen 58 mg/dL (7-20) Creatinine 5.9 mg/dL (0.6-1.0) Estimated GFR (Cockcroft-Gault) 8.5 Glucose Level 210 mg/dL (70-99) Calcium Level 9.5 mg/dL (8.5-10.1) VTE Prophylaxis Ordered VTE Prophylaxis Devices: Yes VTE Pharmacological Prophylaxi: No Assessment/Plan Assessment/Plan Renal failure, poor PD catheter function. Suspect this is a function of the d egree of lower abdominal adhesions. We will try to evaluate laparoscopically to see if can improve. However it remains possible that PD may not be feasible due to the adhesions. JOSE CAT MD May 23, 2019 09:21
--- NOTE | 2019-05-23 11:55 | PDOC4 ---
Operative Note Operative Note Operative Note: Preoperative Diagnosis: Renal failure, poorly functioning peritoneal dialysis catheter Postoperative Diagnosis: Same Procedure: Laparoscopic lysis of adhesions, removal and laparoscopic replacement of peritoneal dialysis catheter Surgeon: Ti Anesthesia: Gen. EBL: 10 mL Specimen: None Drains: None Complications: None Indication: The patient is a 69-year-old female who will require dialysis for renal failure. Over a month ago a perineal dialysis catheter was placed. At that time she was found to have marked pelvic adhesions requiring lysis of adhesions. The catheter shows poor fluid retrieval and will require revision and possible replacement. I discussed the risks of surgery with the patient which include bleeding, infection, bowel injury, pain, catheter malfunction or dysfunction, potential need for additional surgery or procedure. In addition if this does not work it is likely that the peritoneal approach may no longer be feasible and the patient is aware of this. Description: The patient was taken to the operating room and placed supine on the operating table. Gen. anesthesia was performed. The abdomen was prepped with ChloraPrep and draped in a standard surgical manner. A right upper quadrant incision was made through which a visualized 5 Manzo trocar was inserted. A pneumoperitoneum was created and the laparoscope was introduced. Initial inspection showed marked abdominal adhesions primarily of the mid abdomen and pelvis. Previously we had performed adhesive lysis of the significant amount of omentum and this appears to have re-adhesed. The catheter was seen in the left lower quadrant where it was placed previously. We were able to infuse a liter of fluid through the catheter with no difficulty. The fluid however was not readily retrieved. We suspect the adhesions to be the primary issue. We directed our attention to the right lower quadrant. There were some adhesions of small bowel in the vicinity. An additional [address] in the right abdomen. With sharp dissection some lysis of adhesions was performed freeing up some small intestine. This did allow for a window of space down toward the lower mid pelvis. We elected to attempt catheter placement in this location, and we selected a two piece catheter allowing for tunneling to the upper right abdomen. With the template the right abdomen skin was marked and an 8 mm trocar placed. The lower catheter segment was then placed in the lower mid pelvis through the previously developed space. The upper template was then used for marking of the skin for the exit site. The catheter segments were cut and assembled to the metallic connector. 2-0 Prolene ties were used to secure the catheter to the connector. The catheter was then tunneled to the right upper abdomen. The proximal segment was then tunneled subcutaneously to the right abdomen trocar site which was used as the exit site. The catheter was connected to IV tubing and 1 liter of saline was infused into the abdomen without difficulty. The bag was placed on the floor and the entire liter was readily retrieved with good flow. The left abdominal catheter was removed by dissecting both cuffs free. The small fascial opening was closed with 0-Vicryl. The skin at all incisions was closed with 4-0 monocryl and sterile dressings were placed. The catheter was flushed with dilute heparin and connected to the extension tubing with the beta-cap. The patient tolerated the procedure well and was sent to the recovery room in stable condition. At the end of the case all counts were correct. JOSE CAT MD May 23, 2019 11:55
--- NOTE | 2019-05-23 11:57 | DISCH ---
DISCHARGE INSTRUCTIONS Condition on Discharge Condition on Discharge: Stable Activity After Discharge Activity Instructions for Disc: Other, see below (no lifting over 20 lbs X 2 weeks) Diet after Discharge Diet after Discharge: Renal Dialysis Wound Incision Care Wound/Incision Care: Other, see below (keep dressings clean and dry) Follow-Up Follow up with: Dialysis center, call for appointment JOSE CAT MD May 23, 2019 11:57
[2019-05-23 12:50] VITALS: BP 151/70
== END ==
LOC: SURG 08:03
PROVIDERS: ATTEND Surgery
DX: T85.691A Other mechanical complication of intraperitoneal dialysis catheter, initial encounter (principal); K66.0 Peritoneal adhesions (postprocedural) (postinfection); I12.9 Hypertensive chronic kidney disease with stage 1 through stage 4 chronic kidney disease, or unspecified chronic kidney disease; N18.9 Chronic kidney disease, unspecified; Y83.8 Other surgical procedures as the cause of abnormal reaction of the patient, or of later complication, without mention of misadventure at the time of the procedure; Y92.89 Other specified places as the place of occurrence of the external cause; Z79.899 Other long term (current) drug therapy; Z90.710 Acquired absence of both cervix and uterus; Z98.890 Other specified postprocedural states
CPT/HCPCS: 36415; 49324; 49422; 80048; 82962; J0171; J0690; J1100; J1644; J2001; J2250; J2405; J2704; J2710; J3010; J3490; A7015; C1752; J7030

== ENCOUNTER → 2019-06-10 | Outpatient (CLI) | payer BC ==
[2019-05-23 12:50] VITALS: BP 151/70
[~2019-06-10] MED LIST changes: -DESFLURANE > 120 MINUTES IH ONE; -DEXAMETHASONE SOD PHOS 4 MG/ML VIAL ONE; -FAMOTIDINE 20 MG/2 ML VIAL ONE; -GLYCOPYRROLATE 1 MG/5 ML VIAL. ONE; -HEPARIN SODIUM 1,000 UNIT in IV NORMAL SALINE 100ML 100 ML IRR ONE; -HYDROcodone/APAP 5/325MG 1 TAB TABLET PO ONE; -HYDROmorphone 2 MG/ML VIAL IV PRN; -INSULIN LISPRO 100 UNIT/ML 3ML VIAL for OP,RR ONLY. SQ PRN; -IV NORMAL SALINE 1000ML BAG 1,000 ML IV SCH; -IV RINGERS,LACTATED 1000ML 1,000 ML IV SCH; -LIDOCAINE 1% PF 2 ML VIAL. ID PRN; -LIDOCAINE 2% PF 5 ML VIAL. ONE; -MIDAZOLAM HCL/PF 2 MG/2 ML VIAL. ONE; -MORPHINE SULFATE 2 MG/ML VIAL. IV PRN; -NEOSTIGMINE METHYLSULFATE 5 MG/5 ML SYRINGE. ONE; -ONDANSETRON PF 4 MG/2 ML VIAL. IV PRN; -ONDANSETRON PF 4 MG/2 ML VIAL. ONE; -PROCHLORPERAZINE 10 MG/2 ML VIAL. IV PRN; -PROPOFOL 20 ML IV ONE; -ROCURONIUM 50 MG/5 ML VIAL. ONE; -ePHEDrine PF IN SALINE 50 MG/10 ML SYRINGE. IV ONE; -fentaNYL PF VIAL 100 MCG/2 ML VIAL IV PRN; -fentaNYL PF VIAL 100 MCG/2 ML VIAL ONE
--- NOTE | 2019-06-10 10:20 | RAD ---
PROCEDURE: CHEST PA LATERAL CLINICAL INDICATION: Positive TB skin test. COMPARISON: None FINDINGS: No pneumothorax identified. Cardiac and mediastinal contours unremarkable. No pulmonary consolidation or acute airspace disease. No acute osseous abnormalities identified. IMPRESSION: No pulmonary consolidation or acute airspace disease. Electronically signed by: Kaiden Weinstein DO (06/10/2019 10:17 AM) [facility]
== END | disposition home or self-care (01) ==
LOC: RAD 09:43
PROVIDERS: ATTEND Internal Medicine Nephrology
DX: R76.11 Nonspecific reaction to tuberculin skin test without active tuberculosis (principal)
CPT/HCPCS: 71046

== ENCOUNTER → 2020-01-20 | Outpatient (CLI) | payer BC ==
[~2020-01-20] VITALS: Ht 167.6 cm; Wt 70.3 kg
[~2020-01-20] MED LIST changes: +FURO80TA3 PO; -GLIM2TAB2 PO; +GLIM2TAB7 PO; -GLIM4TAB2 PO; +GLIM4TAB8 PO; +IODIXANOL 320 MG/ML 50ML VIAL. IV ONE; +IODIXANOL 320 MG/ML 50ML VIAL. ONE; -NIFE30TA17 PO; +NIFE30TA95 PO; +POTA20TA4 PO; -POTA20TA82 PO; +Vitamin D2 PO
[2020-01-20 10:35] VITALS: BP 132/63
[2020-01-20 11:25] VITALS: BP 158/75
--- NOTE | 2020-01-23 09:14 | RAD ---
Fluoroscopic evaluation of peritoneal dialysis catheter January 20, 2020 INDICATION: Malfunctioning catheter Discussion: The risks and benefits of the procedure were discussed the patient. Informed consent was obtained. The abdomen including the pre-existing catheter were prepped and draped using sterile barrier technique. Fluoroscopic evaluation demonstrates catheter to be in expected position coiled over the pelvis. The catheter was found to flush and aspirate normally. Contrast was administered demonstrating free flow into the peritoneum. No gross loculations are identified. A guidewire is advanced to the catheter which uncoiled and recoiled normally. Fluoroscopy time: 1.0 minutes Dose area product: 34 Gycm2 Impression: Normal fluoroscopic evaluation of the peritoneal dialysis catheter
== END ==
LOC: INTRAD 09:59
PROVIDERS: ATTEND Internal Medicine Nephrology
DX: T85.611A Breakdown (mechanical) of intraperitoneal dialysis catheter, initial encounter (principal); Y83.8 Other surgical procedures as the cause of abnormal reaction of the patient, or of later complication, without mention of misadventure at the time of the procedure; Y92.89 Other specified places as the place of occurrence of the external cause
CPT/HCPCS: 49400; 74190; C1769; Q9967

== ENCOUNTER → 2020-04-20 | Outpatient (CLI) | payer BC ==
[2020-01-20 11:25] VITALS: BP 158/75
[~2020-04-20] MED LIST changes: -IODIXANOL 320 MG/ML 50ML VIAL. IV ONE; -IODIXANOL 320 MG/ML 50ML VIAL. ONE
== END | disposition home or self-care (01) ==
LOC: LAB 13:19
PROVIDERS: ATTEND Internal Medicine Gastroenterology
DX: Z11.59 Encounter for screening for other viral diseases (principal)
CPT/HCPCS: U0003-CS

== ENCOUNTER → 2020-04-26 | Day surgery (SDC) | payer BC ==
[~2020-04-26] MED LIST changes: +AMLO10TA8 PO; -ASPI-612 PO; +ASPI-886 PO; -CALC600T4 PO; +CALC600T6 PO; +CRESTOR5 MG PO; +HYDROmorphone 2 MG/ML VIAL IV PRN; +IV RINGERS,LACTATED 1000ML 1,000 ML IV SCH; +LIDOCAINE 1% PF 2 ML VIAL. ID PRN; +LIDOCAINE 1% PF 2 ML VIAL. ONE; +MORPHINE SULFATE 2 MG/ML VIAL. IV PRN; +ONDANSETRON PF 4 MG/2 ML VIAL. IV PRN; +PROCHLORPERAZINE 10 MG/2 ML VIAL. IV PRN; +PROPOFOL 10 MG/ML (20ML) VIAL. IV ONE; +fentaNYL PF VIAL 100 MCG/2 ML VIAL IV PRN
[2020-04-26 13:32] VITALS: BP 132/57
== END | disposition home or self-care (01) ==
LOC: ENDOS 11:31
PROVIDERS: ATTEND Internal Medicine Gastroenterology
DX: Z12.11 Encounter for screening for malignant neoplasm of colon (principal); K57.30 Diverticulosis of large intestine without perforation or abscess without bleeding; K64.0 First degree hemorrhoids; I12.9 Hypertensive chronic kidney disease with stage 1 through stage 4 chronic kidney disease, or unspecified chronic kidney disease; E11.22 Type 2 diabetes mellitus with diabetic chronic kidney disease; N18.9 Chronic kidney disease, unspecified; Z79.84 Long term (current) use of oral hypoglycemic drugs; Z90.710 Acquired absence of both cervix and uterus; Z98.890 Other specified postprocedural states
CPT/HCPCS: 45378; J2704; J3490